=== PATIENT | male | born 1960 | race Caucasian/White ===

== ENCOUNTER 2020-07-14 11:08 | Emergency (ER) | payer OTHER ==
[~2020-07-14] VITALS: Ht 172.7 cm; Wt 68.0 kg
[2020-07-14 11:24] VITALS: BP 124/80
[2020-07-14] MEDS ORDERED: SODIUM CHLORIDE 0.9% 1,000 ML IV ONE ×2 (11:45)
[2020-07-14 11:46] LABS: Basophils # (auto) 0.1 10 ^3/uL (0-0.2); Eosinophils # (auto) 0.1 10 ^3/uL (0-0.8); Eosinophils % (auto) 1.3 % (0.0-7.0); Hematocrit 41.7 % (41.0-53.0); Hemoglobin 14.2 g/dL (13.5-17.5); Lymphocytes # (auto) 1.3 10 ^3/uL (0.4-5.4); Lymphocytes % (auto) 25.3 % (10.0-50.0); Mean Corpuscular Hemoglobin 31.3 pg (28.0-32.0); Mean Corpuscular Volume 92.1 fL (80.0-100.0); Monocytes # (auto) 0.3 10 ^3/uL (0-1.3); Monocytes % (auto) 4.9 % (0.0-12.0); Neutrophils # (auto) 3.5 10 ^3/uL (1.6-8.6); Neutrophils % (auto) 67.5 % (37.0-80.0); Nucleated Red Blood Cells % 0.2 %; Platelet Count (auto) 244 10^3/uL (140-450); Red Blood Cells 4.53 10^6/uL (4.5-5.90); Red Cell Distribution Width 13.4 % (11.8-14.3); White Blood Cell 5.2 10^3/uL (4.4-10.8)
[2020-07-14 12:06] LABS: Chloride 115 mmol/L (98-107); Potassium 4.1 mmol/L (3.5-5.1); Sodium 146 mmol/L (136-145)
[2020-07-14 12:16] LABS: Alanine Aminotransferase 49 U/L (16-61); Albumin 3.5 g/dL (3.4-5.0); Alkaline Phosphatase 49 U/L (45-117); Anion Gap 11 (5-15); Aspartate Aminotransferase 31 U/L (15-37); Bilirubin, Total 0.7 mg/dL (0.2-1.0); Blood Urea Nitrogen 20 mg/dL (7-18); Calcium 8.7 mg/dL (8.5-10.1); Carbon Dioxide 20 mmol/L (21-32); GFR African American 92 mL/min; GFR Non-African American 76 mL/min; Glucose 72 mg/dL (74-106); Magnesium 2.1 mg/dL (1.6-2.6); Total Protein 6.2 g/dL (6.4-8.2)
== END 2020-07-14 13:39 | disposition home or self-care (01) ==
LOC: ER 11:08 → EDBD 11:08 → ER 13:39
DX: E86.0 Dehydration (principal); R55 Syncope and collapse; E11.9 Type 2 diabetes mellitus without complications
CPT/HCPCS: 36415; 70450; 72125; 80053; 83735; 84484; 85025; 96360; 96361